=== PATIENT | male | born 1955 | race Caucasian/White ===

== ENCOUNTER → 2019-02-18 | Outpatient (CLI) | payer BC ==
--- NOTE | 2019-02-18 13:10 | XR ---
EXAMINATION TYPE: XR chest 2V DATE OF EXAM: 02/18/2019 COMPARISON: NONE HISTORY: Shortness of breath, recent thoracentesis 5-6 days ago. TECHNIQUE: Frontal and lateral views of the chest are obtained. FINDINGS: There is background chronic emphysematous change without suspicious focal air space opacit y, pleural effusion, or pneumothorax seen. Bilateral hilar prominence is suggestive of underlying pul monary artery hypertension. Moderate biapical and left basilar pleural/parenchymal scarring . The ca rdiac silhouette size is enlarged. The osseous structures are intact. IMPRESSION: Cardiomegaly and chronic emphysematous change without acute pulmonary process.
== END | disposition home or self-care (01) ==
LOC: RADXRYALE 10:33
PROVIDERS: ATTEND Physician Assistant Medical
DX: I51.7 Cardiomegaly (principal); J43.9 Emphysema, unspecified
CPT/HCPCS: 71046

== ENCOUNTER → 2021-02-22 | Outpatient (CLI) | payer BC ==
[~2021-02-22] MED LIST: BAMLANIVIMAB (EUA) 700 MG, ETESEVIMAB (EUA) 1,400 MG in SODIUM CHLORIDE 0.9% 50 ML IVPB NR; SODIUM CHLORIDE 0.9% 50 ML IVPB ONE; SODIUM CHLORIDE 0.9% 500 ML 500 ML in EMPTY BAG 1 BAG IV PRN
[2021-02-22 10:47] VITALS: RESP 16; TEMP 97.4
[2021-02-22 11:54] VITALS: BP 134/85; PULSE 57
== END ==
LOC: PROCWHC3 10:11
DX: U07.1 COVID-19 (principal); E66.9 Obesity, unspecified; Z88.1 Allergy status to other antibiotic agents; Z68.26 Body mass index [BMI] 26.0-26.9, adult
CPT/HCPCS: 96360; J3490; M0245

== ENCOUNTER → 2024-06-27 | Outpatient (CLI) | payer MEDICARE ==
--- NOTE | 2024-06-27 09:31 | XR ---
EXAMINATION TYPE: XR chest 2V DATE OF EXAM: 06/27/2024 9:26 AM COMPARISON: Chest radiographs from 02/18/2019 TECHNIQUE: XR chest 2V Frontal and lateral views of the chest. CLINICAL INDICATION:Male, 69 years old with history of J189 PNEUMONIA; FINDINGS: Lungs/Pleura: Hyperinflation. No pleural effusion or pneumothorax. Patchy airspace opacities within t he bilateral mid lung the left greater the right. Pulmonary vascularity: Unremarkable. Heart/mediastinum: Cardiomediastinal silhouette is enlarged and stable. Aortic stent graft. Musculoskeletal: No acute osseous pathology. IMPRESSION: Background COPD with bilateral patchy midlung airspace opacities consistent with pneumonia. [facility], , 06/27/2024 9:28 AM
== END | disposition home or self-care (01) ==
LOC: RADXRYALE 09:14
PROVIDERS: ATTEND Physician Assistant Medical
DX: J44.9 Chronic obstructive pulmonary disease, unspecified (principal); J18.9 Pneumonia, unspecified organism
CPT/HCPCS: 71046

== ENCOUNTER → 2024-07-04 | Outpatient (CLI) | payer MEDICARE ==
--- NOTE | 2024-07-04 10:07 | XR ---
EXAMINATION TYPE: XR chest 2V DATE OF EXAM: 07/04/2024 9:55 AM COMPARISON: 06/27/2024 CLINICAL INDICATION: Male, 69 years old with history of J189 PNEUMONIA: Shortness of breath TECHNIQUE: XR chest 2V views of the chest are obtained. FINDINGS: Scattered senescent parenchymal changes noted. Hyperinflation compatible with COPD. Persistent perihilar infiltrates with slight interval improvement suggested. Heart size is stable. Mediastinal structures are stable and grossly unremarkable. No evidence for hilar prominence. Degenerative changes dorsal spine. IMPRESSION: 1. Persistent perihilar infiltrates with slight interval improvement suggested. [facility], , 07/04/2024 10:05 AM
== END | disposition home or self-care (01) ==
LOC: RADXRYALE 09:32
PROVIDERS: ATTEND Physician Assistant Medical
DX: J18.9 Pneumonia, unspecified organism (principal)
CPT/HCPCS: 71046